=== PATIENT | female | born 1950 | race Two or more races ===

== ENCOUNTER 2017-06-20 11:14 | Inpatient (IN) | payer MEDICARE ==
[~2017-06-20] VITALS: Ht 180.3 cm; Wt 64.4 kg
--- NOTE | 2017-06-20 13:30 | NUR ---
PT. ADM. TO RM 309-2.ALERT AND ORIENTED,BUT SOME DIFFICULTY ANSWERING QUESTIONS FROM TIME TO TIME.HOOKED UP TO TELE SR RATE OF 66.PLEASANT. INSTRUCTED NOT TO GET OOB WITHOUT HELP.
[2017-06-20] MEDS ORDERED: ACETAMINOPHEN 325 MG TABLET PO PRN (14:30)
[2017-06-20] MEDS ORDERED: Z GUARD REMEDY 2 OZ OINT TP PRN (14:30)
[2017-06-20] MEDS ORDERED: ZOLPIDEM TARTRATE 5 MG TABLET PO PRN (14:30)
[2017-06-20] MEDS ORDERED: LORA0.5T PO (14:35)
[2017-06-20] MEDS: IV NS 0.9% 1,000 ML IV PRN (15:56)
[2017-06-20 16:00] VITALS: BP 112/55
--- NOTE | 2017-06-20 17:00 | NUR ---
ADMIT PHOTOS TAKEN AND PLACED IN CHART.
[2017-06-20] MEDS: Folic acid 1 MG in IV D5W 50 ML IV SCH (17:07)
[2017-06-20] MEDS: Thiamine 100 MG in IV D5W 50 ML IV SCH (18:08)
--- NOTE | 2017-06-20 18:50 | NUR ---
MEGAN WITH ID AND CREDIT CARDS WELL PENALOZA TO SAFE,CIGARETTES TO DESK AND ATIVAN BOTTLE TO PHARM.
--- NOTE | 2017-06-20 19:00 | NUR ---
MS RN OPENING NOTES RECEIVE PT RESTING IN BED, A/OX 1. NO S/S OF RESPIRATORY DISTRESS OR SOB. SAFETY MEASURES IN PLACE, ON LOW BED TO ENSURE SAFETY. CALL LIGHT WITHIN REACH. WILL CONTINUE TO MONITOR
[2017-06-20 20:00] VITALS: BP 127/59
[2017-06-20 20:14] VITALS: BP 127/59
[2017-06-20] MEDS: HYDROCODONE/APAP 5/325MG 1 EACH TABLET PO PRN (21:15)
[2017-06-21] MEDS: LORAZEPAM INJ 2 MG/ML VIAL IV PRN ×4 (03:11→22:32)
[2017-06-21] MEDS: HYDROCODONE/APAP 5/325MG 1 EACH TABLET PO PRN (03:16)
[2017-06-21] MEDS: IV NS 0.9% 1,000 ML IV PRN (03:17)
--- NOTE | 2017-06-21 06:20 | NUR ---
MS RN CLOSING NOTES PATIENT COMFORTABLY ASLEEP AND EASILY AWAKEN, HEAD OF BED ELEVATED FOR BETTER LUNG EXPANSION TOLERATING ROOM AIR 02 SAT AT 100% IV SITE TO L HAND 20 NS RUNNING AT 75 CC/HR INFUSING IV SITE NO S/S OF INFILTRATED, PATIENT DENIES PAIN AT THIS TIME. RESPIRATIONS EVEN AND UNLABORED. NO SEIZURE NOTED THROUGHOUT THE SHIFT. NO S/S OF ACUTE DISTRESS, NO SOB, NO COUGH, NO CONGESTION, SKIN WARM AND DRY TO TOUCH, AFEBRILE, ALL NURSING CARE NEEDS PROVIDED AND RENDERED, KEPT CLEAN AND DRY AND COMFORTABLE, GOOD SKIN ARE PROVIDED. FREQUENT VISUAL CHECK DONE FOR SAFETY EVERY 2 HOURS. SAFE HAZARD FREE ENVIRONMENT PROVIDED. CALL LIGHT WITHIN EASY TO REACH, ON LOW BED AT ALL TIMES TO ENSURE SAFETY, WILL ENDORSE TO THE NEXT SHIFT CONTINUE PLAN OF CARE
[2017-06-21 07:25] LABS: BASOPHILS % (AUTO) 0.2 % (0.0-2.0); EOSINOPHILS # (AUTO) 0.3 /CMM (0.0-0.7); EOSINOPHILS % (AUTO) 6.9 % (0.0-6.0); HEMATOCRIT 34 % (33-45); HEMOGLOBIN 11.7 g/dL (11.5-14.8); LYMPHOCYTES # (AUTO) 1.7 /CMM (0.8-4.8); LYMPHOCYTES % (AUTO) 35.8 % (20.0-44.0); MEAN CORPUSCULAR HEMOGLOBIN 36 PG (26.0-33.0); MEAN CORPUSCULAR HGB CONC 34 g/dl (31.0-36.0); MEAN CORPUSCULAR VOLUME 106 fL (82-100); MONOCYTES # (AUTO) 0.2 /CMM (0.1-1.30); NEUTROPHILS # (AUTO) 2.4 /CMM (1.8-8.9); NEUTROPHILS % (AUTO) 52.1 % (43.0-81.0); PLATELET COUNT (AUTO) 75 /CMM (150-450); RDW COEFFICIENT OF VARIATION 14.4 (11.5-15.0); RED BLOOD CELL COUNT(AUTO) 3.25 MIL/uL (4.0-5.2); WHITE BLOOD COUNT (AUTO) 4.7 K/uL (4.3-11.0)
[2017-06-21 07:28] LABS: INR 1.24 (0.87-1.13); PROTHROMBIN TIME 13.4 SECS (9.5-12.7)
[2017-06-21 07:33] LABS: ALBUMIN 2.4 g/dL (3.4-5.0); BILIRUBIN,TOTAL 2.2 mg/dL (0.2-1.0); CALCIUM, SERUM 8.2 mg/dL (8.5-10.1); CREATININE 0.6 mg/dL (0.6-1.3); MAGNESIUM 1.4 mg/dL (1.8-2.4); PHOSPHORUS 3.4 mg/dL (2.5-4.9); POTASSIUM 3.4 mmol/L (3.5-5.1); TOTAL PROTEIN, SERUM 6.2 g/dL (6.4-8.2)
[2017-06-21 08:00] VITALS: BP 123/75
[2017-06-21] MEDS: ONDANSETRON HCL/PF 4 MG/2 ML VIAL IVP PRN ×2 (08:52→22:33)
--- NOTE | 2017-06-21 08:52 | NUR ---
PT.MEDICATED FOR AGITATION AND A LITTLE TREMERING HANDS WITH ATIVAN IV.
[2017-06-21 09:36] LABS: BAND % (MANUAL) 2 % (0.0-5.0); EOSINOPHILS % (MANUAL) 4 % (0-4); LYMPHOCYTES % (MANUAL) 33 % (16-48); MONOCYTES % (MANUAL) 9 % (0-11.0); NEUTROPHILS % (MANUAL) 52 (42-76)
--- NOTE | 2017-06-21 10:00 | NUR ---
TELE DC,D PER MD ORDERS.DR. WOOTEN IN TO SEE PT.
[2017-06-21] MEDS: Magnesium 1GM/D5W 100ML PREMIX 100 ML IV SCH ×4 (10:23→16:12)
--- NOTE | 2017-06-21 11:25 | NUR ---
Social service consult requested by Med Surg MCKENNA Childress for alcohol program resources. Pt. is a 66 year old female who was admitted to [facility] for Alcohol Abuse. SW met with pt. bedside. Pt. is alert and oriented x 4. Pt. was cooperative and friendly towards SW during the assessment. Pt. states she lives alone on [address], [address] [place] [address]. Pt. is and has some supports from friends and family. Pt. has a half-brother who resides in [place]. Pt. receives approximately $1400 a month in [employer] benefits and $380.00 from a small pension. Pt. is ambulatory but has a walker at home, which she uses when she has a lot of anxiety. Pt. is an alcoholic and states she drinks approximately 6 to 8 glasses of wine per day. Pt. states she has not been to any alcohol treatment programs and has attended over 100 AA meetings. Pt. is not interested in any alcohol treatment referrals and AA referrals. When ARLETH offered referrals to pt. she stated, " I have a stack of referrals in my closet and AA meetings do not work for me". Pt. denies using drugs but smokes 5 to 6 cigarettes per day. At times pt. smokes more than 6 cigarettes per day, when she is feeling anxious or nervous. Pt. denies suicidal and homicidal ideations and visual/ auditory hallucinations at this time. No social service needs are required at this time. SW is available if needed. ARLETH informed MCKENNA Childress regarding pt. refusing referrals for Alcohol treatment programs.
[2017-06-21] MEDS ORDERED: POTASSIUM CHLORIDE 20 MEQ TAB.PRT.SR PO SCH (11:30)
--- NOTE | 2017-06-21 11:30 | NUR ---
IV LT. HAND LEAKING AND REMOVED.NEW START IN LT WRIST WITH #22 ANGIO.TOLERATED WELL.
--- NOTE | 2017-06-21 11:48 | NUR ---
WOUND CARE CONSULT: PT PRESENTS CONTINENT AND AMBULATORY. SKIN TEAR NOTED TO RT ARM. RECOMMENDATIONS MADE AND DISCUSSED WITH NURSING STAFF FOR SKIN PROTECTION AND WOUND CARE. WILL SEE PRN. SLOAN IN AGREEMENT WITH PLAN OF CARE. Addendum: 06/21/17 at 1152 by SONJA BAEZA WNDNU Amended: Links added.
--- NOTE | 2017-06-21 14:48 | NUR ---
PT. MEDICATED AGAIN WITH ATIVAN IV.UP AND DOWN OUT OF BED VERY FREQ.IV INFUSING.
--- NOTE | 2017-06-21 16:00 | NUR ---
POTASSIUM AND MG. REPLACEMENT.
[2017-06-21 16:31] VITALS: BP 128/65
[2017-06-21] MEDS: Folic acid 1 MG in IV D5W 50 ML IV SCH (17:41)
--- NOTE | 2017-06-21 18:00 | NUR ---
RN IN TO RM. SUH.PT. GETTING OOB WITHOUT HELP,CONFUSED AT TIMES,LOOKING FOR BELONGINGS ASSURED THEY ARE LOCKED UP.
[2017-06-21] MEDS: Thiamine 100 MG in IV D5W 50 ML IV SCH (18:38)
[2017-06-21 20:00] VITALS: BP 126/73
[2017-06-21 22:00] VITALS: BP 126/73
[2017-06-22] MEDS: LORAZEPAM INJ 2 MG/ML VIAL IV PRN ×4 (01:08→21:17)
[2017-06-22 06:52] LABS: CALCIUM, SERUM 8.3 mg/dL (8.5-10.1); CREATININE 0.7 mg/dL (0.6-1.3); MAGNESIUM 1.5 mg/dL (1.8-2.4); POTASSIUM 3.7 mmol/L (3.5-5.1)
--- NOTE | 2017-06-22 07:30 | NUR ---
END OF SHIFT SUMMERY: PT IS A&O X 1. CONFUSED WITH MULTIPLE EPISODES OF AGITATION. REORIENTATION AND EDUCATION PROVIDED TO THE PATIENT MULTIPLE TIMES. PT STILL CONFUSED AND AGITATED . ATIVAN WAS GIVEN TWICE PRESCRIBED WITH LIGHT RELIEF. FALL RISK AND SAFETY MEASURES WERE IMPLEMENTED . PT NEEDS SITTER. CHARGE NURSE IS AWARE. WILL ENDORSE IT TO AM SHIFT NURSE TO FOLLOW UP.
--- NOTE | 2017-06-22 08:00 | NUR ---
MS RN AM NOTES RECEIVE PT RESTING IN BED, A/OX 1. PT SLEEPING COMFORTABLY BUT AROUSABLE WITH NO AGITATION NOTED. NO S/S OF RESPIRATORY DISTRESS OR SOB.WITH 1:1 SITTER AT BEDSIDE. SAFETY MEASURES IN PLACE, ON LOW BED TO ENSURE SAFETY. CALL LIGHT WITHIN REACH. WILL CONTINUE TO MONITOR
[2017-06-22] MEDS: THIAMINE HCL 100 MG TABLET PO SCH (11:10)
[2017-06-22] MEDS: FOLIC ACID 1 MG TABLET PO SCH (11:10)
[2017-06-22] MEDS: Magnesium 1GM/D5W 100ML PREMIX 100 ML IV SCH ×2 (11:10→12:34)
--- NOTE | 2017-06-22 13:00 | NUR ---
PT REFUSED IV NS TO BE HOOKED AND IS GETTING ANXIOUS WITH THE IV TUBING.WILL HOOK IT BACK LATER.
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
--- NOTE | 2017-06-22 20:00 | NUR ---
MS/RN OPENING NOTES PATIENT AWAKE, NOT COOPERATIVE AND REFUSE TO HAVE VITAL SIGN CHECK, REQUIRE ONE ON ONE SITTER AND NEED CONTINOUS MONITORING WILL BE TRANSFERED TO ANOTHER ROOM.
[2017-06-23] MEDS: LORAZEPAM INJ 2 MG/ML VIAL IV PRN ×3 (03:36→13:22)
[2017-06-23] MEDS: IV NS 0.9% 1,000 ML IV PRN (03:36)
--- NOTE | 2017-06-23 03:39 | NUR ---
MS/RN NOTES ATIVAN 1MG/0.5ML GIVEN FOR PATIENT RESTLESNESS
--- NOTE | 2017-06-23 06:17 | NUR ---
ms/rn closing notes patient able to sleep during the night. no s/s of distress or discomfort. administered ativan iv inj.continue monitoing for pain. require one on one. sitter . will continue . Will endorse to am rn.
[2017-06-23 06:52] LABS: CALCIUM, SERUM 8.4 mg/dL (8.5-10.1); CREATININE 0.6 mg/dL (0.6-1.3); MAGNESIUM 1.4 mg/dL (1.8-2.4); POTASSIUM 3.4 mmol/L (3.5-5.1)
[2017-06-23 08:00] VITALS: BP 131/61
[2017-06-23] MEDS: FOLIC ACID 1 MG TABLET PO SCH (08:59)
[2017-06-23] MEDS: THIAMINE HCL 100 MG TABLET PO SCH (09:00)
[2017-06-23] MEDS: Magnesium 1GM/D5W 100ML PREMIX 100 ML IV SCH ×4 (11:32→15:09)
[2017-06-23 12:00] VITALS: BP 136/68
[2017-06-23] MEDS ORDERED: POTASSIUM CHLORIDE 20 MEQ TAB.PRT.SR PO SCH (12:00)
--- NOTE | 2017-06-23 12:30 | NUR ---
SW was inquired by cyanide case hardener Warren to contact missing persons since pt. has been hospitalized for a few days and no family has come to see the pt. [facility] contacted Missing Persons and spoke to Detective Christensen who looked into their database and could not find a missing persons report filed on pt.
[2017-06-23] MEDS: HYDROCODONE/APAP 5/325MG 1 EACH TABLET PO PRN (13:18)
[2017-06-23 16:00] VITALS: BP 143/64
--- NOTE | 2017-06-23 18:00 | NUR ---
PT IS RESTING CALMLY IN BED WITH THE SITTER AT BEDSIDE.DENIES PAIN OR DISTRESS.SMILES OFTEN AND CONFUSION REMAINS.WAS SEEN BY CRISIS TEAM WITH ORDERS FOR 51/50 AND TO BE DISCHARGED TO GPS UNIT.ENDORSED TO NIGHT RN SHIFT.
--- NOTE | 2017-06-23 19:30 | NUR ---
MS RN NOTES RECEIVED RESTING COMFORTABLY ON BED.WITH IVF INFUSING AT 75ML/HR RATE VIA RIGHT UPPER MIDLINE THRU IV PUMP.WITH SALINE LOCK ON THE RFA AND LEFT AC,BOTH NOT WORKING,APPARENTLY WAS REMOVED.PATIENT WILL BE D.C TO [facility] AND WAS PLACE ON 5150 HOLD BY CRISIS TEAM.AWAITING TO BE TRANSFER.SITTER AT BEDSIDE.
--- NOTE | 2017-06-23 20:00 | NUR ---
MS RN NOTES REPORT GIVEN TO HENRIK AYALA RN FOR DAWSON.
[2017-06-23 20:11] VITALS: BP 116/63
--- NOTE | 2017-06-23 20:50 | NUR ---
MS RN NOTES TRANSFERRED TO GPS VIA WHEELCHAIR IN STABLE CONDITION.
[2017-06-23] MEDS ORDERED: CHLO25CA22 PO (22:21)
[2017-06-23] MEDS ORDERED: ACET-73 PO (22:21)
[2017-06-23] MEDS ORDERED: THIA100T74 PO (22:21)
[2017-06-23] MEDS ORDERED: FOLI1TAB16 PO (22:21)
== END 2017-06-23 20:51 | DRG 896 ==
LOC: EDSEX → MED 13:05
PROVIDERS: ADMIT Internal Medicine; ATTEND Internal Medicine
PROC: 05H533Z Insertion of Infusion Device into Right Subclavian Vein, Percutaneous Approach (ICD-10-PCS; principal; 2017-06-22)
DX: F10.231 Alcohol dependence with withdrawal delirium (principal); G92 Toxic encephalopathy; E83.42 Hypomagnesemia; F10.229 Alcohol dependence with intoxication, unspecified; Y90.9 Presence of alcohol in blood, level not specified
CPT/HCPCS: 36415; 36569; 80048-TC; 80053-TC; 80061-TC; 83735-TC; 84100-TC; 84484-TC; 85025-TC; 85610-TC; 87081-TC; A6403; J2060; J2405; J3411; J3475; J3490; J7030; J7060; Z7610

== ENCOUNTER 2017-06-23 21:12 | Inpatient (IN) | payer MEDICARE ==
[2017-06-23 21:00] VITALS: BP 136/71
[~2017-06-23 21:12] MED LIST: LORA0.5T PO
[2017-06-23] MEDS ORDERED: THIA100T74 PO (22:21)
[2017-06-23] MEDS ORDERED: FOLI1TAB16 PO (22:21)
[2017-06-23] MEDS ORDERED: ACET-73 PO (22:21)
[2017-06-23] MEDS ORDERED: CHLO25CA22 PO (22:21)
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
--- NOTE | 2017-06-24 06:17 | NUR ---
GPS/RN NOTE: PAGED DR. Angie REYNOSO FOR MED RECON.
--- NOTE | 2017-06-24 06:18 | NUR ---
GPS/RN NOTE: MRSA SCREEN DONE
--- NOTE | 2017-06-24 06:18 | NUR ---
GPS/RN OTE: SKIN ASSESSMENT/PHOTO DONE
[2017-06-24 07:18] LABS: BASOPHILS % (AUTO) 0.1 % (0.0-2.0); EOSINOPHILS # (AUTO) 0.3 /CMM (0.0-0.7); EOSINOPHILS % (AUTO) 4.5 % (0.0-6.0); HEMATOCRIT 38 % (33-45); HEMOGLOBIN 12.5 g/dL (11.5-14.8); LYMPHOCYTES # (AUTO) 2.2 /CMM (0.8-4.8); MEAN CORPUSCULAR HEMOGLOBIN 36 PG (26.0-33.0); MEAN CORPUSCULAR HGB CONC 33 g/dl (31.0-36.0); MEAN CORPUSCULAR VOLUME 107 fL (82-100); MONOCYTES # (AUTO) 0.4 /CMM (0.1-1.30); MONOCYTES % (AUTO) 6.9 % (2.0-12.0); NEUTROPHILS # (AUTO) 2.9 /CMM (1.8-8.9); NEUTROPHILS % (AUTO) 49.5 % (43.0-81.0); PLATELET COUNT (AUTO) 80 /CMM (150-450); RDW COEFFICIENT OF VARIATION 15.3 (11.5-15.0); RED BLOOD CELL COUNT(AUTO) 3.52 MIL/uL (4.0-5.2); WHITE BLOOD COUNT (AUTO) 5.8 K/uL (4.3-11.0)
[2017-06-24 07:39] LABS: ALBUMIN 2.6 g/dL (3.4-5.0); BILIRUBIN,TOTAL 1.4 mg/dL (0.2-1.0); CALCIUM, SERUM 8.7 mg/dL (8.5-10.1); CREATININE 0.6 mg/dL (0.6-1.3); POTASSIUM 3.6 mmol/L (3.5-5.1); TOTAL PROTEIN, SERUM 6.9 g/dL (6.4-8.2)
[2017-06-24 08:00] VITALS: BP 132/69
[2017-06-24 10:00] LABS: BAND % (MANUAL) 2 % (0.0-5.0); EOSINOPHILS % (MANUAL) 7 % (0-4); LYMPHOCYTES % (MANUAL) 41 % (16-48); MONOCYTES % (MANUAL) 8 % (0-11.0); NEUTROPHILS % (MANUAL) 42 (42-76)
[2017-06-24 16:11] VITALS: BP 110/68
[2017-06-24 20:00] VITALS: BP 115/69
--- NOTE | 2017-06-24 20:16 | NUR ---
GPS/RN NOTE: PATIENT RESTING IN BED, SKIN ASSESSMENT DONE, PHOTO TAKEN, SKIN CONSULT ORDERED.
--- NOTE | 2017-06-24 20:17 | NUR ---
GPS/RN NOTE: PATIENT TOOK SHOWER.
[2017-06-25 08:00] VITALS: BP 126/67
[2017-06-25 16:00] VITALS: BP 125/61
--- NOTE | 2017-06-25 19:30 | NUR ---
GPS RN INITIAL NOTE PT IN BED. AWAKE, ALERT AND ORIENTED X3. PT WITH FLAT AFFECT, COOPERATIVE. SAYS SHE NEEDS TO GO HOME. INSTRUCTED PATIENT TO USE WALKER AND CALL FOR HELP WHEN SHE NEEDS TO USE THE BATHROOM. DIAPER INTACT. BED IN LOW LOCKED POSITION. WILL CONTINUE TO MONITOR.
[2017-06-25 19:40] VITALS: BP 110/61
[2017-06-26 08:00] VITALS: BP 101/54
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
[2017-06-26 16:00] VITALS: BP 119/53
[2017-06-26 20:04] VITALS: BP 99/49
[2017-06-27 08:00] VITALS: BP 124/58
--- NOTE | 2017-06-27 11:00 | NUR ---
WOUND CARE CONSULT: PT PRESENTS WITH RASH TO BUTTOCKS AND PERINEUM WELL BUMPY RASH TO FACE (CHEEKS). DEFER TO MD FOR FACIAL RASH. RECOMMENDATIONS MADE FOR BUTTOCK/PERINEAL RASH. DISCUSSED WITH NURSING STAFF. SKIN TEAR TO RT ARM REPAIRED WITH STERI STRIPS. PT NOTED TO HAVE VERY DRY SKIN ON ARMS. RECOMMEND MOISTURIZER. WILL SEE PRN. MD IN AGREEMENT WITH PLAN OF CARE. CURRENT QING SCORE IS 18. Addendum: 06/27/17 at 1102 by SONJA BAEZA WNDNU Amended: Links added.
--- NOTE | 2017-06-27 15:22 | NUR ---
abrasive worker spoke to patient regarding or brothers contact numbers. Patient appeared confused and was unable to provide any information. Charge nurse Caty searched patient's belongings for a cell phone however, no cell phone was found. abrasive worker will follow-up.
[2017-06-27 16:04] VITALS: BP 131/58
[2017-06-27 19:51] VITALS: BP 131/71
[2017-06-28] VITALS (8 sets, daily range): BP systolic 134–185; BP diastolic 65–119
--- NOTE | 2017-06-28 06:16 | NUR ---
GPS RN NOTES: PATIENT WAS FOUND IN THE ROOM VOMITING, DESCRIBED TO BE MIXTURE OF FOOD AND SALIVA, GREENISH IN COLOR. . PATIENT ALSO NOTED TO BE UNRESPONSIVE AND NON-AROUSABLE UPON STERNAL RUB STIMULATION. VITAL SIGNS CHECKED TEMP-94F, HR-66 BP134/66 O2 SAT- 99%. RAPID RESPONSE CALLED FOR PATIENT. PATIENT THEN CLEANED UP AND HOOKED UP TO VITAL SIGNS MACHINE FOR MONITORING. 0630- DR. JORDAN INFORMED OF THE SAID INCIDENT. NO FURTHER ORDERS THIS TIME.
--- NOTE | 2017-06-28 07:10 | NUR ---
The patient is alert,oriented x1,no s/s of acute distress noted upon reassessment at this time.
--- NOTE | 2017-06-28 07:20 | NUR ---
RECEIVED PATIENT SLEEPING ,RESPIRATION EVEN AND UNLABORED NO FACIAL GRIMACING ,SKIN WARM ND DRY TO TOUCH,BP 155/99 PULSE 99 . PATIENT VOMITED AT 0755 ,OPEN HER EYES AND LETHARGIC AT 0800 VOMITED AGAIN ,NONVERBAL ,RAPID RESPONSE CALLED AT [address] JORDAN NOTIFIED BY CHARGE NURSE ,PATIENT SEEN BY RAPID RESPONSE TEAM ,CODE STROKE CALLED ,BP 166/118,HR 99 ,RR 16 ,SAO2 96%.PATIENT TRANSFERRED TO TELEMETRY UNIT ,HOLD DISCONTINUE BY .
--- NOTE | 2017-06-28 08:23 | NUR ---
CARPENTER HELPER MAINTENANCE RN RESPONDED TO CORE STICKER. PATIENT IS ON RECLINER CHAIR. PATIENT NOTED TO ONLY RESPOND TO DEEP PAINFUL STIMULI AND RIGHT SIDED FACIAL DROOPING NOTED. DROOLING NOTED. CODE STROKE ACTIVATED PER ASSESSMENT.
--- NOTE | 2017-06-28 08:32 | NUR ---
COMPUTER SCIENCE TEACHER TELE NEUROLOGIST CALLED THE HOSPITAL. RN GAVE REPORT TO THE TELE NEUROLOGIST. DR. SMA ASSESSED AND EXAMINED THE PATIENT AT BEDSIDE.
--- NOTE | 2017-06-28 09:10 | NUR ---
Received patient this am post rapid response for altered mental status. Patient very lethargic, opens eyes and moans to only to pain. Reported patient baseline was ambulatory and coherent. Code stroke called, CT head done- negative. Dr. Quinones at bedside, order stat MRI. No Family member available to consent for MRI.
[2017-06-28 09:13] LABS: BASOPHILS % (AUTO) 0.1 % (0.0-2.0); EOSINOPHILS % (AUTO) 0.2 % (0.0-6.0); HEMATOCRIT 44 % (33-45); HEMOGLOBIN 14.8 g/dL (11.5-14.8); LYMPHOCYTES # (AUTO) 1.3 /CMM (0.8-4.8); LYMPHOCYTES % (AUTO) 30.2 % (20.0-44.0); MEAN CORPUSCULAR HEMOGLOBIN 35 PG (26.0-33.0); MEAN CORPUSCULAR HGB CONC 33 g/dl (31.0-36.0); MEAN CORPUSCULAR VOLUME 106 fL (82-100); MONOCYTES # (AUTO) 0.3 /CMM (0.1-1.30); MONOCYTES % (AUTO) 7.9 % (2.0-12.0); NEUTROPHILS # (AUTO) 2.7 /CMM (1.8-8.9); NEUTROPHILS % (AUTO) 61.6 % (43.0-81.0); PLATELET COUNT (AUTO) 90 /CMM (150-450); RDW COEFFICIENT OF VARIATION 14.9 (11.5-15.0); WHITE BLOOD COUNT (AUTO) 4.4 K/uL (4.3-11.0)
[2017-06-28 09:14] LABS: CHOLESTEROL 190 mg/dL (<200); HDL CHOLESTEROL 67 mg/dL (40-60); LDL 112 mg/dL (0-99); TRIGLYCERIDES 78 mg/dL (30-150)
--- NOTE | 2017-06-28 09:18 | NUR ---
Dr. Boss/neurology at bedside for eval. Patient still lethargic but opens her eyes and slowly responding. She is able to state her name, and aware she is in the hospital. Normotensive now, 153/85 P87 O2 sat 98% on 2L NC. Patient continue coughing, vomited green secretions with little bit of blood earlier, Dr. gallagher aware. Aspiration precautions, HOB 90
--- NOTE | 2017-06-28 09:30 | NUR ---
Patient discharge from this account. Patient re admitted under an inpatient account
[2017-06-28 09:32] LABS: INR 1.2 (0.87-1.13); PROTHROMBIN TIME 12.5 SECS (9.5-12.7)
[2017-06-28 09:50] LABS: BAND % (MANUAL) 2 % (0.0-5.0); EOSINOPHILS % (MANUAL) 2 % (0-4); LYMPHOCYTES % (MANUAL) 31 % (16-48); MONOCYTES % (MANUAL) 1 % (0-11.0); NEUTROPHILS % (MANUAL) 64 (42-76)
[2017-06-28 09:55] LABS: ALANINE AMINOTRANSFERASE 19 U/L (12-78); ALKALINE PHOSPHATASE 90 U/L (46-116); ASPARTATE AMINOTRANSFERASE 30 U/L (15-37); BILIRUBIN,TOTAL 1.3 mg/dL (0.2-1.0); CARBON DIOXIDE 21 mmol/L (21-32); CHLORIDE 107 mmol/L (98-107); POTASSIUM 4.1 mmol/L (3.5-5.1); SODIUM SERUM 142 mmol/L (136-145); TOTAL PROTEIN, SERUM 8.1 g/dL (6.4-8.2); UREA NITROGEN, BLOOD 18 mg/dL (7-18)
[2017-06-28 10:08] LABS: ALBUMIN 3.1 g/dL (3.4-5.0); CALCIUM, SERUM 9.3 mg/dL (8.5-10.1); CREATININE 0.7 mg/dL (0.6-1.3); MAGNESIUM 1.6 mg/dL (1.8-2.4)
[2017-06-28 10:31] LABS: B-TYPE NATRIURETIC PEPTIDE < 5 PG/ML (0-125); GLUCOSE 167 mg/dL (74-106)
[2017-06-28 13:49] LABS: THYROID STIMULATING HORMONE 1.173 uIU/mL (0.358-3.74)
== END 2017-06-28 08:45 | disposition short-term general hospital (02) | DRG 885 ==
LOC: EDSEX → GPS 21:12 → ICUOV 06-28 08:45
PROVIDERS: ADMIT Psychiatry & Neurology Psychiatry; ATTEND Internal Medicine
DX: F33.2 Major depressive disorder, recurrent severe without psychotic features (principal); F10.229 Alcohol dependence with intoxication, unspecified; G92 Toxic encephalopathy; F03.90 Unspecified dementia, unspecified severity, without behavioral disturbance, psychotic disturbance, mood disturbance, and anxiety; E83.42 Hypomagnesemia; F10.239 Alcohol dependence with withdrawal, unspecified; F23 Brief psychotic disorder; I10 Essential (primary) hypertension; F43.10 Post-traumatic stress disorder, unspecified; Y90.9 Presence of alcohol in blood, level not specified
CPT/HCPCS: 36415; 70450-TC; 70551-TC; 80048-TC; 80053-TC; 80061-TC; 82962-TC; 83735-TC; 83880; 84443-TC; 84484-TC; 85025-TC; 85652-TC; 85730-TC; 95819-TC; A4606; A6402

== ENCOUNTER 2017-06-28 10:41 | Inpatient (IN) | payer MEDICARE ==
[2017-06-28] VITALS (16 sets, daily range): BP systolic 141–175; BP diastolic 62–85
[~2017-06-28] VITALS: Ht 180.3 cm; Wt 64.0 kg
--- NOTE | 2017-06-28 09:30 | NUR ---
Re admitted patient from GPS to rule out stroke. Patient very lethargic, drooling, vomiting this AM with concern voice out by GPS RN that mild facial droop on the right side. Code stroke called, CT head done negative. Patient transferred to ICU to rule out stroke, NIH assessment. No family available.
[~2017-06-28 10:41] MED LIST changes: +CHLO25CA22 PO; +FOLI1TAB16 PO; -LORA0.5T PO; +THIA100T74 PO
[2017-06-28 12:36] LABS: APPEARANCE,URINE CLEAR (CLEAR); BILIRUBIN,URINE NEGATIVE (NEGATIVE); BLOOD, URINE NEGATIVE Ery/uL (NEGATIVE); KETONES,URINE TRACE (NEGATIVE); LEUKOCYTE ESTERASE ,URINE 1+ (NEGATIVE); NITRITE, URINE NEGATIVE (NEGATIVE); PROTEIN,URINE NEGATIVE (NEGATIVE); UGLUCOSE NEGATIVE (NEGATIVE); UROBILINOGEN,URINE 0.2 EU/dL (0.2)
[2017-06-28 12:38] LABS: COLOR,URINE DARK YELLOW (YELLOW)
--- NOTE | 2017-06-28 12:48 | NUR ---
WOUND CARE CONSULT: PT PRESENTS WITH RASH TO SACRAL/BUTTOCKS AREA AND PERINEUM WELL FACIAL RASH, PRESENT ON ADMISSION. DEFER TO MD FOR FACIAL RASH/REDNESS. CLOSED SKIN TEARS NOTED TO RT ARM AND RT LEG. RECOMMENDATIONS MADE FOR SKIN PROTECTION AND RASH ON BUTTOCKS/PERINEUM. DISCUSSED WITH NURSING STAFF. RECOMMEND LOW AIRLOSS BED. ALL SKIN PROTECTION MEASURES IN PLACE. WILL SEE PRN. MD IN AGREEMENT WITH PLAN OF CARE. Addendum: 06/28/17 at 1250 by SONJA BAEZA WNDNU Amended: Links added.
[2017-06-28 13:23] LABS: BACTERIA,URINE Few /HPF (None Seen); RBC,URINE 0-2 /HPF (0-2)
--- NOTE | 2017-06-28 19:30 | NUR ---
DRIER TENDER: RECEIVED PT WT EYES CLOSED. ABLE TO OPEN EYES WHEN TOUCHED AND CALLED BY NAME. NOTED LETHARGIC. ON 2L 02 VIA NC WT NO ACUTE DISTRESS. NO EVIDENCE OF DISCOMFORT. SR ON DIRECTOR OF BUSINESS CONTINUITY. AFEBRILE. TOLERATING IVF WT NO S/S OF INFILTRATION ON IV SITE. F/C PATENT AND INTACT DRAINING YELLOW URINE. WILL CONTINUE TO MONITOR. SAFETY PRECAUTION NOTED.
[2017-06-29] VITALS (31 sets, daily range): BP systolic 85–158; BP diastolic 47–107
--- NOTE | 2017-06-29 00:35 | NUR ---
DOUBLE END TENON OPERATOR: MATEUSZ MANUEL MADE AWARE OF 06/28 MG=[address] WOOTEN'S NOTES OF DX OF HYPOMAGNESEMIA AND THAT THERE'S A REPEAT LABS TODAY. VENEER JOINTER OPERATOR SAID NO NEED TO REPLACE MG FOR NOW.
--- NOTE | 2017-06-29 02:45 | NUR ---
ART MANAGER: ALL LAB ORDERS ORDERED BY DR. WOOTEN WERE FROM GPS ACCOUNT AND WAS ASKED BY LAB PERSONNEL TO TRANSFER TO ICU ACCT.
--- NOTE | 2017-06-29 04:00 | NUR ---
CYLINDER HEAD ASSEMBLER: BED BATH GIVEN AND TOLERATED WELL. NO DAWSON AT THIS TIME. ABLE TO KNOW NAME AND DATE OF WHEN ASKED. SR ON PRODUCTION SUPPORT CONSULTANT. LH IV INFUSING 1/2 NS AT 100ML/HR WT NO S/S OF INFILTRATION. F/C PATENT AND INTACT DRAINING YELLOW URINE. SAFETY PRECAUTION NOTED AT ALL TIMES.
[2017-06-29 04:53] LABS: BASOPHILS % (AUTO) 0.2 % (0.0-2.0); EOSINOPHILS % (AUTO) 0.5 % (0.0-6.0); HEMATOCRIT 42 % (33-45); HEMOGLOBIN 14.1 g/dL (11.5-14.8); LYMPHOCYTES # (AUTO) 1.5 /CMM (0.8-4.8); LYMPHOCYTES % (AUTO) 20.5 % (20.0-44.0); MEAN CORPUSCULAR HEMOGLOBIN 35 PG (26.0-33.0); MEAN CORPUSCULAR HGB CONC 33 g/dl (31.0-36.0); MEAN CORPUSCULAR VOLUME 106 fL (82-100); MONOCYTES # (AUTO) 0.7 /CMM (0.1-1.30); MONOCYTES % (AUTO) 8.9 % (2.0-12.0); NEUTROPHILS # (AUTO) 5.2 /CMM (1.8-8.9); NEUTROPHILS % (AUTO) 69.9 % (43.0-81.0); PLATELET COUNT (AUTO) 119 /CMM (150-450); RDW COEFFICIENT OF VARIATION 14.5 (11.5-15.0); WHITE BLOOD COUNT (AUTO) 7.4 K/uL (4.3-11.0)
[2017-06-29 04:55] LABS: CALCIUM, SERUM 8.8 mg/dL (8.5-10.1); CARBON DIOXIDE 28 mmol/L (21-32); CHLORIDE 106 mmol/L (98-107); CREATININE 0.7 mg/dL (0.6-1.3); GLUCOSE 98 mg/dL (74-106); MAGNESIUM 1.3 mg/dL (1.8-2.4); POTASSIUM 3.2 mmol/L (3.5-5.1); SODIUM SERUM 142 mmol/L (136-145); UREA NITROGEN, BLOOD 10 mg/dL (7-18)
[2017-06-29 05:03] LABS: TROPONIN I < 0.017 ng/mL (0.00-0.056)
[2017-06-29 05:09] LABS: CHOLESTEROL 189 mg/dL (<200); HDL CHOLESTEROL 63 mg/dL (40-60); INR 1.19 (0.87-1.13); LDL 120 mg/dL (0-99); PROTHROMBIN TIME 12.4 SECS (9.5-12.7); TRIGLYCERIDES 70 mg/dL (30-150)
--- NOTE | 2017-06-29 06:00 | NUR ---
SEA AIR LAND OFFICER: NOTIFIED KALEB CHILD FOR MG LEVEL=1.3 AND K=3.2 WT ORDERS TO GIVE MG 4M AND KCL 10MEQ IV. NOTED AND CARRIED OUT. NO SIGNIFICANT DAWSON DURING THE SHIFT. REMAINED LETHARGIC AND ABLETO FOLLOW SIMPLE COMMANDS. VS WITHIN HER BASELINE. SAFETY PRECAUTION NOTED AT ALL TIMES.
--- NOTE | 2017-06-29 08:00 | NUR ---
CREDIT HISTORIAN:NOTE RECEIVED PT WT EYES CLOSED.LETHARGIC ABLE TO OPEN EYES WHEN TOUCHED AND CALLED BY NAME. ON 2L 02 VIA NC SAT 99% NO ACUTE DISTRESS. NO EVIDENCE OF DISCOMFORT. SR ON ADJUNCT PHILOSOPHY FACULTY SB 50 . AFEBRILE. LT HAND IV SITE WITH SWOLLEN NOTED KEEP ELEVATED AT ALL TIME ,F/C PATENT AND INTACT DRAINING YELLOW URINE. WILL CONTINUE TO MONITOR. SAFETY PRECAUTION NOTED. ON NPO STATUS, ON IVF ORDERED AND ON MAG INFUSING, BED IN LOWEST AND LOCKED POSITION
--- NOTE | 2017-06-29 08:30 | NUR ---
RAND BUTTER NOTE SPOKE WITH DR WOOTEN NOTIFIED THAT 3.2 ,10 MEQ KCL IV GIVEN ,NO MORE TO ADMINISTER AT THIS TIME
--- NOTE | 2017-06-29 08:30 | NUR ---
PSYCHIATRIC TECHNICIAN ASSISTANT NOTE DR WOOTEN AWARE THAT LDL 163 HDL 63 OFFERED TO ORDER ASA AND STATIN STATED PATIENT STILL LETHARGIC WILL F\U. ALSO NOTIFIED THAT PATIENT HAS LT HAND WITH SWOLLEN ,KEEP ELEVATED
--- NOTE | 2017-06-29 08:51 | NUR ---
BUGGY DRIVER NOTE SPOKE WITH DR WOOTEN NOTIFIED THAT K 3.2 10 MEQ I BAG WAS GIVEN STATED ITS OK NO MORE AT THIS TIME TO DWIGHT GIVEN, ALSO NOTIFY THAT NA [address] RING CURING SUPERVISOR WILL SE HER SOON , ASKED DR KAREN SRIVASTAVA AND ASA STATED THAT PATIENT STILL LETHARGIC UNABLE TO TAKE PO MEDS AT THIS TIME Addendum: 06/29/17 at 0926 by KRISS GOULD RN WRONG CHARTING, WRONG PATIENT
--- NOTE | 2017-06-29 09:30 | NUR ---
SALES SUPPORT ADVISOR NOTE SEEN BY DR MONTES , WITH ORDER ABG , WILL F\U
[2017-06-29 10:18] LABS: ABG BASE EXCESS 1.2 mmol/L; ABG OXYGEN SATURATION 97.8 % (92.0-98.5); ABG PCO2 38.9 mmHg (35.0-45.0); ABG PH 7.433 (7.350-7.450); ABG PO2 122.9 mmHg (75.0-100.0); COHb 0.4 % (0.5-1.5); MetHb 0.3 % (0.0-1.5); O2Hb 97.1 % (94.0-97.0); SITE, ABG Right Radial; VENT MODE, BG NASAL CANNULA
--- NOTE | 2017-06-29 10:19 | NUR ---
DIRECTOR OF AGRONOMY NOTE PER DR JYOTI KHOURY DONE
--- NOTE | 2017-06-29 11:21 | NUR ---
ARCHITECTURE ANALYST NOTE MORE AWAKE ,AND FOLLOW SIMPLE COMMAND , PT AT BEDSIDE DONE ,ABLE TO STAND UP WITH MIN ASSISTANCE, WILL F\U
--- NOTE | 2017-06-29 12:44 | NUR ---
DRIVE MAN NOTE NOTIFIED TO DR WOOTEN IF OK TO PACE DVT PUMP ,STATED NOAT THIS TIME, LOVENOX ONLY AT WILL F\U Addendum: 06/29/17 at 1307 by KRISS GOULD RN WRONG CHARTING ON WRONG PATIENT DISREGARD ENTRY
--- NOTE | 2017-06-29 15:25 | NUR ---
LANDSCAPE HORTICULTURE INSTRUCTOR NOTE ST AT BEDSIDE ,WILL EVAL TOMORROW WHEN PATIENT GET MORE AWAKE , WILL F\U
--- NOTE | 2017-06-29 17:30 | NUR ---
GEOLOGIST PETROLEUM NOTE BP75/35 .ELEVATED LOWER EXTREMITIES , ON IVF ORDERED , PATINT AWKE AND ABLE TO SPEAK , WILL MONITOR CLOSELY
--- NOTE | 2017-06-29 18:40 | NUR ---
PATIENT SERVICE REP NOTE BP NOW 127/45 SAT 97% , NOT IN ACUTE DISTRESS AT THIS TIME , WILL CONT TO MONITOR ACCORDANTLY
--- NOTE | 2017-06-29 19:30 | NUR ---
ASSISTANT GUEST SERVICES MANAGER RCD PT W/DX AMS; POSSIBLE STROKE. INITIALLY PT APPEARS LETHARGIC HOWEVER UPON ASSESSMENT PT FULLY WAKES UP AND IS ABLE TO ANSWER IN COMPLETE SENTENCES. ABLE TO FOLLOW COMMANDS. NO WEAKNESS NOTED ON ALL EXTREMITIES. EDEMA NOTED TO LEFT HAND FROM PREVIOUS IV SITE; REINFORCE TO PT TO ELEVATE HAND. PT NOTED WITH RASHES W/ORDERS FROM LOTRISONE AND ZGUARD. PENDING MIDLINE INSERTION.
--- NOTE | 2017-06-29 20:12 | NUR ---
MOBILE HOME LABORER NON ADMIT STK MEDS FOR PT SAFETY.
[2017-06-30] VITALS (28 sets, daily range): BP systolic 97–155; BP diastolic 37–77
--- NOTE | 2017-06-30 00:42 | NUR ---
SDC TEACHER ACCU CHECK 80; NO COVERAGE NEEDED.
--- NOTE | 2017-06-30 02:00 | NUR ---
DIRECTOR OF EPIDEMIOLOGY COMPLETE BED BATH RENDERED. ORAL CARE RENDERED. PT TOLERATED WELL.
--- NOTE | 2017-06-30 06:07 | NUR ---
K 9 POLICE OFFICER ACCU CHECK 73; NO COVERAGE NEEDED.
--- NOTE | 2017-06-30 07:05 | NUR ---
DYE HOUSE WORKER NOTES RECEIVE PT ON BED, A/Ox1, FOLLOWS SIMPLE COMMANDS ,NO WEAKNESS NOTED ON ALL EXTREMITIES, RESPIRATION EVEN AND UNLABORED , ON 02 2 L N/C , O2 SAT 95%, ESA ANY DISTRESS AT THIS TIME , AGGARWAL DRAINING TO GRAVITY , NPO THIS AM . AWAITING FOR SWALLOWING EVAL THIS AM. R UPPER ARM MIDLINE WITH 1/2 NS RUNNING AT 100CC/HR , RIGHT FA IV SITE G 20 CDI, SR UP x3, CALL LIGHT WITHIN EASY REACH, CONTINUE TO MONITOR PT CLOSELY
--- NOTE | 2017-06-30 11:00 | NUR ---
RN NOTES PT STILL CONFUSED , A/Ox1 , SB ON TELE, NO DISTRESS NOTED, CONTINUE TO MONITOR.
--- NOTE | 2017-06-30 12:18 | NUR ---
RN NOTES AGGARWAL AND IVF AND O2 DISCONTINUED PER DR MAGDALENO ORDER, RA 02 SAT 98%. CONTINUE TO MONITOR . PT IS MED-SUG STATUS AT THIS TIME PER MD ORDER .
--- NOTE | 2017-06-30 12:40 | NUR ---
WOUND CARE CONSULT: PT PRESENTS WITH RASH TO SACRAL/BUTTOCKS AND PERINEAL AREAS, PRESENT ON ADMISSION. SOME IMPROVEMENT NOTED. CONTINUE PRESENT TREATMENT. DISCUSSED WITH NURSING STAFF. PT MORE ALERT NOW. PT ON RIKA ISOFLEX LOW AIRLOSS BED. WILL SEE PRN. SLOAN IN AGREEMENT WITH PLAN OF CARE. Addendum: 06/30/17 at 1241 by SONJA BAEZA WNDNU Amended: Links added.
--- NOTE | 2017-06-30 16:00 | NUR ---
RN NOTES VSS STABLE, PT DENIES ANY DISTRESS , CONTINUE TO MONITOR .
--- NOTE | 2017-06-30 18:55 | NUR ---
RN NOTES PT EAT ABOUT 40% OF HER DINNER , TOLERATED WELL. DR. MAGDALENO PAGED AND NOTIFIED , ORDER GIVEN TO DISCHARGE PT TO GPS . ORDER ENDORSE TO DIRECTOR OF FINANCIAL PLANNING NURSE FOR DAWSON .
--- NOTE | 2017-06-30 20:00 | NUR ---
RN NOTES IN BED, AWAKE WITH NO DISTRESS NOTED. ALERT AND RESPONSIVE WITH CONFUSION. WITH ORDERS TO BE TRANSFERRED TO GPS, HOLD FOR FURTHER ORDER. NO COMPLAINT OF PAIN OF THIS TIME. ALL NEEDS ATTENDED. KEPT CLEAN AND DRY. WILL CONTINUE TO MONITOR
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
[2017-07-01 04:00] VITALS: BP 129/80
--- NOTE | 2017-07-01 07:32 | NUR ---
RN CLOSING NOTES IN BED, SLEEPING WITH NO DISTRESS NOTED. NO SIGN OR SYMPTOM OF PAIN OR DISCOMFORT. FOR TRANSFER TO GPS. NO SIGNIFICANT CHANGE OF CONDITION, NEEDS ATTANDED. WILL ENDORSE AM SHIFT FOR CONTINUITY OF CARE.
--- NOTE | 2017-07-01 07:33 | NUR ---
MS RN NOTES RECEIVED PATIENT IN BED, AWAKE. A/O X2, APPEARS ANXIOUS. BED ALARM ON. ON ROOM AIR, TOLERATING WELL, NO SOB. GUNNER MIDLINE PATENT AND INTACT, FLUSHES WELL. NO C/O PAIN AT THIS TIME. PLACE CALL LIGHT WITHIN REACH. WILL CONT TO MONITOR. PATIENT TO BE DISCHARGED TO GPS ORDERED.
[2017-07-01 08:00] VITALS: BP 145/59
--- NOTE | 2017-07-01 11:10 | NUR ---
MS RN DISCHARGED PATIENT HAS BEEN CLEARED FOR DISCHARGE TO PSYCH UNIT BY MD. PATIENT IS AWAKE, APPEARS ANXIOUS AND FORGETFUL, FREQUENT RE ORIENTATION PROVIDED. SKIN CARE PROVIDED, GUNNER MIDLINE AND IV IN RFA REMOVED, GAUZE APPLIED, NO BLEEDING NOTED. PATIENT IS SEEN BY DR. BLOCK/PSYCH PROR MYRA. CALLED [facility] SPOKE TO AMISHA/ALEXANDRU FOR REPORT. PATIENT HAS NO BELONGINGS. PATIENT WAS MEDICALLY DISCHARGED TO [facility], TRANSPORTED VIA WHEELCHAIR, ACCOMPANIED BY ANOTHER RN.
[2017-07-01] MEDS ORDERED: CLOT15CR4 TP (12:08)
[2017-07-01] MEDS ORDERED: ALLA266C2 TP (12:08)
[2017-07-01] MEDS ORDERED: BLOO-668 IN (12:08)
== END 2017-07-01 11:10 | DRG 100 ==
LOC: EDSEX → ICUOV 10:41 → MEDSG1 06-30 12:22
PROVIDERS: ADMIT Internal Medicine; ATTEND Internal Medicine
PROC: 05H533Z Insertion of Infusion Device into Right Subclavian Vein, Percutaneous Approach (ICD-10-PCS; principal; 2017-07-01)
PROC: B546ZZA Ultrasonography of Right Subclavian Vein, Guidance (ICD-10-PCS; 2017-07-01)
DX: G40.909 Epilepsy, unspecified, not intractable, without status epilepticus (principal); G93.40 Encephalopathy, unspecified; F33.2 Major depressive disorder, recurrent severe without psychotic features; I10 Essential (primary) hypertension; R29.810 Facial weakness; F10.10 Alcohol abuse, uncomplicated; E87.6 Hypokalemia; F43.10 Post-traumatic stress disorder, unspecified; F03.90 Unspecified dementia, unspecified severity, without behavioral disturbance, psychotic disturbance, mood disturbance, and anxiety
CPT/HCPCS: 36415; 36569; 36600; 71010-TC; 80048-TC; 80061-TC; 80305; 81000-TC; 82803-TC; 82962-TC; 83735-TC; 84484-TC; 85025-TC; 85730-TC; 87081-TC; 87086-TC; 92611-TC; 95819-TC; 97112-TC; 97116-TC; 97530-TC; A4606; C9113; J3475; J3480; J3490; Z7610

== ENCOUNTER 2017-07-01 11:40 | Inpatient (IN) | payer MEDICARE ==
[~2017-07-01] VITALS: Ht 180.3 cm; Wt 64.4 kg
[2017-07-01 11:30] VITALS: BP 129/66
[2017-07-01 12:00] VITALS: BP 129/66
[2017-07-01] MEDS ORDERED: LORAZEPAM 0.5 MG TABLET PO PRN (12:00)
[2017-07-01] MEDS ORDERED: MAGNESIUM HYDROXIDE 30 ML UDC PO PRN (12:00)
[2017-07-01] MEDS ORDERED: MAG HYDROX/AL HYDROX/SIMETH 30 ML UDC PO PRN (12:00)
[2017-07-01] MEDS ORDERED: ACETAMINOPHEN 325 MG TABLET PO PRN (12:00)
--- NOTE | 2017-07-01 12:00 | NUR ---
GPS/RN RECEIVED PT FROM [facility] ON 525 HOLD A/O X1 POOR HISTORIAN CONFUSED REFUSED TO SIGN ADMITTING PAPERWORK/CONSENTS, REFUSED FULL BODY ASSESSMENT AND PICTURES TAKEN. RESISTIVE TO CARE. ADMITTING ORDERS FROM DR JORDAN AND RANDY RECEIVED AND CARRIED OUT.NO RELATIVES TO NOTIFY OF ADMISSION. NO CONTRABAND NOTED.
[2017-07-01] MEDS ORDERED: BLOO-668 IN (12:08)
[2017-07-01] MEDS ORDERED: CLOT15CR4 TP (12:08)
[2017-07-01] MEDS ORDERED: ALLA266C2 TP (12:08)
[2017-07-01 16:10] VITALS: BP 118/83
[2017-07-01] MEDS ORDERED: DEXTROSE 50%-WATER 50 ML DISP.SYRIN IV PRN (16:30)
[2017-07-01] MEDS ORDERED: INSULIN REGULAR, HUMAN 100 UNIT/ML 3 ML VIAL SQ PRN (16:30)
[2017-07-01] MEDS ORDERED: BLOOD SUGAR DIAGNOSTIC 1 EACH STRIP IN SCH (17:30)
[2017-07-01] MEDS: CLOTRIMAZOLE/BETAMETASONE DIPROPIONATE 15 GM TUBE TP SCH (18:11)
[2017-07-01 20:00] VITALS: BP 125/49
--- NOTE | 2017-07-02 00:31 | NUR ---
Pt has been quite fragmented, confused, & refusing skin assessment.
[2017-07-02 06:57] LABS: BASOPHILS % (AUTO) 0.3 % (0.0-2.0); EOSINOPHILS # (AUTO) 0.2 /CMM (0.0-0.7); EOSINOPHILS % (AUTO) 2.9 % (0.0-6.0); HEMATOCRIT 40 % (39-51); HEMOGLOBIN 13.4 g/dL (13.5-17.5); LYMPHOCYTES # (AUTO) 2.4 /CMM (0.8-4.8); LYMPHOCYTES % (AUTO) 39.9 % (20.0-44.0); MEAN CORPUSCULAR HEMOGLOBIN 36 PG (26.0-33.0); MEAN CORPUSCULAR HGB CONC 34 g/dl (31.0-36.0); MEAN CORPUSCULAR VOLUME 106 fL (80-96); MONOCYTES # (AUTO) 0.5 /CMM (0.1-1.30); MONOCYTES % (AUTO) 8.8 % (2.0-12.0); NEUTROPHILS # (AUTO) 2.9 /CMM (1.8-8.9); NEUTROPHILS % (AUTO) 48.1 % (43.0-81.0); PLATELET COUNT (AUTO) 111 /CMM (150-450); RDW COEFFICIENT OF VARIATION 13.9 (11.5-15.0); RED BLOOD CELL COUNT(AUTO) 3.79 MIL/uL (4.5-6.0); WHITE BLOOD COUNT (AUTO) 6.1 K/uL (4.3-11.0)
[2017-07-02 07:14] LABS: ALBUMIN 2.5 g/dL (3.4-5.0); BILIRUBIN,TOTAL 1.2 mg/dL (0.2-1.0); CALCIUM, SERUM 8.8 mg/dL (8.5-10.1); CREATININE 0.6 mg/dL (0.6-1.3); MAGNESIUM 1.4 mg/dL (1.8-2.4); PHOSPHORUS 3.8 mg/dL (2.5-4.9); POTASSIUM 3.4 mmol/L (3.5-5.1); TOTAL PROTEIN, SERUM 6.9 g/dL (6.4-8.2)
[2017-07-02 08:08] VITALS: BP 106/75
[2017-07-02] MEDS: THIAMINE HCL 100 MG TABLET PO SCH (08:18)
[2017-07-02] MEDS: FOLIC ACID 1 MG TABLET PO SCH (08:18)
[2017-07-02] MEDS: CLOTRIMAZOLE/BETAMETASONE DIPROPIONATE 15 GM TUBE TP SCH ×2 (08:18→17:18)
[2017-07-02] MEDS: Z GUARD REMEDY 2 OZ OINT TP SCH (08:19)
[2017-07-02] MEDS ORDERED: MAGNESIUM OXIDE 400 MG TABLET PO ONE (10:00)
[2017-07-02] MEDS: SERTRALINE HCL 25 MG TABLET PO SCH (11:10)
[2017-07-02] MEDS ORDERED: POTASSIUM CHLORIDE 20 MEQ TAB.PRT.SR PO ONE (12:30)
[2017-07-02] MEDS ORDERED: QUETIAPINE FUMARATE 25 MG TABLET PO PRN (15:00)
[2017-07-02 16:00] VITALS: BP 130/55
[2017-07-02 19:57] VITALS: BP 129/53
[2017-07-02] MEDS ORDERED: MAGNESIUM OXIDE 400 MG TABLET ONE (22:08)
[2017-07-02] MEDS: MAGNESIUM OXIDE 400 MG TABLET PO SCH (22:10)
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
[2017-07-03 08:00] VITALS: BP 118/59
[2017-07-03] MEDS: THIAMINE HCL 100 MG TABLET PO SCH (09:16)
[2017-07-03] MEDS: FOLIC ACID 1 MG TABLET PO SCH (09:16)
[2017-07-03] MEDS: SERTRALINE HCL 25 MG TABLET PO SCH (09:16)
[2017-07-03] MEDS: Z GUARD REMEDY 2 OZ OINT TP SCH (09:17)
[2017-07-03] MEDS: MAGNESIUM OXIDE 400 MG TABLET PO SCH ×2 (09:23→17:18)
[2017-07-03] MEDS: CLOTRIMAZOLE/BETAMETASONE DIPROPIONATE 15 GM TUBE TP SCH ×2 (09:24→17:18)
[2017-07-03 16:00] VITALS: BP 117/60
[2017-07-03 20:20] VITALS: BP 126/58
[2017-07-04 07:19] LABS: CALCIUM, SERUM 9.1 mg/dL (8.5-10.1); CREATININE 0.5 mg/dL (0.6-1.3); MAGNESIUM 1.9 mg/dL (1.8-2.4); POTASSIUM 4.7 mmol/L (3.5-5.1)
[2017-07-04 08:00] VITALS: BP 140/69
[2017-07-04] MEDS: SERTRALINE HCL 25 MG TABLET PO SCH (08:20)
[2017-07-04] MEDS: MAGNESIUM OXIDE 400 MG TABLET PO SCH ×2 (08:20→17:00)
[2017-07-04] MEDS: FOLIC ACID 1 MG TABLET PO SCH (08:21)
[2017-07-04] MEDS: THIAMINE HCL 100 MG TABLET PO SCH (08:21)
[2017-07-04] MEDS: CLOTRIMAZOLE/BETAMETASONE DIPROPIONATE 15 GM TUBE TP SCH ×2 (08:22→17:54)
--- NOTE | 2017-07-04 09:18 | NUR ---
I have reviewed this patients psychosocial dated 06/26/2017 and I can attest to the accuracy of the information therein. There have been no changes since her last assessment. Patient is alert and oriented to time and self. Patients mood is both anxious and depressed and affect is somewhat guarded. Patient is currently denying suicidal/homicidal ideations. Thought process remains poor as well as poor insight and judgement. Patient resides in an apartment located at [address] [place] [address] but is unsure if she wants to return there. ARLTEH to follow up. SW will help form a safe and proper discharge.
[2017-07-04] MEDS: Z GUARD REMEDY 2 OZ OINT TP SCH (09:42)
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
[2017-07-04 15:55] VITALS: BP 143/55
[2017-07-04] MEDS: CLOTRIMAZOLE 1% 15 GM TUBE TP SCH (17:54)
[2017-07-04 20:19] VITALS: BP 138/56
[2017-07-05 08:44] VITALS: BP 109/74
[2017-07-05] MEDS: CLOTRIMAZOLE/BETAMETASONE DIPROPIONATE 15 GM TUBE TP SCH ×2 (09:00→17:00)
[2017-07-05] MEDS: CLOTRIMAZOLE 1% 15 GM TUBE TP SCH ×2 (09:00→17:00)
[2017-07-05] MEDS: Z GUARD REMEDY 2 OZ OINT TP SCH (09:00)
[2017-07-05] MEDS: THIAMINE HCL 100 MG TABLET PO SCH (09:29)
[2017-07-05] MEDS: MAGNESIUM OXIDE 400 MG TABLET PO SCH ×2 (09:29→17:00)
[2017-07-05] MEDS: FOLIC ACID 1 MG TABLET PO SCH (09:29)
[2017-07-05] MEDS: SERTRALINE HCL 25 MG TABLET PO SCH (09:29)
--- NOTE | 2017-07-05 11:37 | NUR ---
plastics factory worker faxed initial review packet to [facility] [id number] [place] [address] (phone: [phone]/ ). plastics factory worker will follow-up.
--- NOTE | 2017-07-05 13:47 | NUR ---
relay worker spoke to December from [address] [place] [address] (phone: [phone]/ ). Per December, they cannot accept the patient due to her alcohol use disorder.
--- NOTE | 2017-07-05 13:50 | NUR ---
maintenance worker swimming pool faxed initial review packet to [facility] (phone: [phone]/ ) [address] [place] [phone]. maintenance worker swimming pool will follow-up.
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
--- NOTE | 2017-07-05 14:34 | NUR ---
pan tank worker attempted to contact patient's friend Liz Gauthiervalerie ([place]) ([phone]). However, she was unavailable, manager social work left her her a voicemail with her contact information. pan tank worker will follow-up.
--- NOTE | 2017-07-05 14:36 | NUR ---
cafeteria worker attempted to contact [facility] clinical social work therapist Juanita ([phone]) however, she was unavailable. cafeteria worker left her a voicemail with her contact information. cafeteria worker will follow-up.
--- NOTE | 2017-07-05 15:30 | NUR ---
social service worker faxed initial review packet to [facility] ( / ) [address] [place] [phone]. social service worker will follow-up.
[2017-07-05 16:41] VITALS: BP 100/69
[2017-07-05 19:57] VITALS: BP 124/48
[2017-07-05 23:00] VITALS: BP 125/63
[2017-07-06 07:03] VITALS: BP 126/70
[2017-07-06 08:16] VITALS: BP 110/65
[2017-07-06] MEDS: MAGNESIUM OXIDE 400 MG TABLET PO SCH ×2 (08:32→16:08)
[2017-07-06] MEDS: THIAMINE HCL 100 MG TABLET PO SCH (08:32)
[2017-07-06] MEDS: SERTRALINE HCL 25 MG TABLET PO SCH (08:32)
[2017-07-06] MEDS: FOLIC ACID 1 MG TABLET PO SCH (08:32)
[2017-07-06] MEDS: Z GUARD REMEDY 2 OZ OINT TP SCH (08:33)
[2017-07-06] MEDS: CLOTRIMAZOLE 1% 15 GM TUBE TP SCH ×2 (10:08→16:23)
[2017-07-06] MEDS: CLOTRIMAZOLE/BETAMETASONE DIPROPIONATE 15 GM TUBE TP SCH ×2 (10:08→16:23)
--- NOTE | 2017-07-06 11:48 | NUR ---
clerical office worker received a voicemail from Sudha from [facility] (phone: [phone]/ ) [address] [place] [address], who stated that they cannot accept the patient as they feel that she is not suitable for their facility.
--- NOTE | 2017-07-06 11:52 | NUR ---
farmworker cranberry faxed [facility] [address] [facility] [address]. (phone: [phone]/ ). farmworker cranberry will follow-up.
--- NOTE | 2017-07-06 12:03 | NUR ---
shed workers supervisor spoke to [facility] social media senior associate Kenzie (Desk: [phone]/ cell: [phone]). shed workers supervisor informed Kenzie that she was looking for placement. [facility] social media senior associate Kenzie requested to be informed when patient is discharged. shed workers supervisor will follow-up.
--- NOTE | 2017-07-06 12:21 | NUR ---
skid road worker faxed initial review packet to [address] [place] [address] (phone: [phone]/ ). skid road worker will follow-up.
[2017-07-06 16:51] VITALS: BP 130/56
[2017-07-06 20:00] VITALS: BP 122/63
[2017-07-06] MEDS: TEMAZEPAM 7.5 MG CAPSULE PO PRN (21:37)
[2017-07-07 08:00] VITALS: BP 152/72
[2017-07-07] MEDS: CLOTRIMAZOLE 1% 15 GM TUBE TP SCH ×2 (08:47→17:16)
[2017-07-07] MEDS: SERTRALINE HCL 25 MG TABLET PO SCH (08:49)
[2017-07-07] MEDS: MAGNESIUM OXIDE 400 MG TABLET PO SCH ×2 (08:49→17:16)
[2017-07-07] MEDS: CLOTRIMAZOLE/BETAMETASONE DIPROPIONATE 15 GM TUBE TP SCH ×2 (08:49→17:16)
[2017-07-07] MEDS: FOLIC ACID 1 MG TABLET PO SCH (08:49)
[2017-07-07] MEDS: THIAMINE HCL 100 MG TABLET PO SCH (08:49)
[2017-07-07] MEDS: Z GUARD REMEDY 2 OZ OINT TP SCH (08:50)
--- NOTE | 2017-07-07 10:10 | NUR ---
WOUND CARE CONSULT: PT SLEEPING SOUNDLY AT THIS TIME. PT HAS PHOTO DOCUMENTATION OF SKIN TEAR TO LEFT ARM. RECOMMENDATIONS MADE BASED ON PHOTO. DISCUSSED WITH NURSING STAFF. PT HAS BEEN SEEN BY WOUND CARE TEAM SEVERAL TIMES. WILL SEE PRN. M D IN AGREEMENT WITH PLAN OF CARE.
--- NOTE | 2017-07-07 12:13 | NUR ---
Per Sis, from [facility] [address] [place] [address]. (phone: [phone]/ ). Patient has been accepted to their facility. pit crew support worker will follow-up.
[2017-07-07 16:00] VITALS: BP 139/63
[2017-07-07 20:00] VITALS: BP 108/55
[2017-07-07] MEDS: TEMAZEPAM 7.5 MG CAPSULE PO PRN (21:32)
[2017-07-08 08:00] VITALS: BP 122/68
[2017-07-08] MEDS: THIAMINE HCL 100 MG TABLET PO SCH (08:08)
[2017-07-08] MEDS: FOLIC ACID 1 MG TABLET PO SCH (08:08)
[2017-07-08] MEDS: SERTRALINE HCL 25 MG TABLET PO SCH (08:08)
[2017-07-08] MEDS: CLOTRIMAZOLE/BETAMETASONE DIPROPIONATE 15 GM TUBE TP SCH ×2 (08:08→17:03)
[2017-07-08] MEDS: MAGNESIUM OXIDE 400 MG TABLET PO SCH ×2 (08:08→17:03)
[2017-07-08] MEDS: Z GUARD REMEDY 2 OZ OINT TP SCH (08:09)
[2017-07-08] MEDS: CLOTRIMAZOLE 1% 15 GM TUBE TP SCH ×2 (08:09→17:03)
[2017-07-08 16:00] VITALS: BP 117/72
[2017-07-08 20:00] VITALS: BP 119/72
[2017-07-08] MEDS: TEMAZEPAM 7.5 MG CAPSULE PO PRN (22:18)
[2017-07-09 07:50] VITALS: BP 132/56
[2017-07-09] MEDS: FOLIC ACID 1 MG TABLET PO SCH (09:31)
[2017-07-09] MEDS: MAGNESIUM OXIDE 400 MG TABLET PO SCH ×2 (09:31→16:20)
[2017-07-09] MEDS: THIAMINE HCL 100 MG TABLET PO SCH (09:31)
[2017-07-09] MEDS: SERTRALINE HCL 25 MG TABLET PO SCH (09:31)
[2017-07-09] MEDS: Z GUARD REMEDY 2 OZ OINT TP SCH (09:32)
[2017-07-09] MEDS: CLOTRIMAZOLE 1% 15 GM TUBE TP SCH (09:32)
[2017-07-09] MEDS: CLOTRIMAZOLE/BETAMETASONE DIPROPIONATE 15 GM TUBE TP SCH ×2 (12:38→16:20)
[2017-07-09 16:00] VITALS: BP 123/50
[2017-07-09 20:02] VITALS: BP 106/72
[2017-07-10 07:43] LABS: CALCIUM, SERUM 9.3 mg/dL (8.5-10.1); CREATININE 0.7 mg/dL (0.6-1.3); MAGNESIUM 1.8 mg/dL (1.8-2.4); PHOSPHORUS 4.4 mg/dL (2.5-4.9); POTASSIUM 3.7 mmol/L (3.5-5.1)
[2017-07-10 08:00] VITALS: BP 134/65
[2017-07-10 08:07] LABS: BASOPHILS % (AUTO) 0.3 % (0.0-2.0); EOSINOPHILS # (AUTO) 0.4 /CMM (0.0-0.7); EOSINOPHILS % (AUTO) 4.9 % (0.0-6.0); HEMATOCRIT 45 % (33-45); HEMOGLOBIN 15.5 g/dL (11.5-14.8); LYMPHOCYTES # (AUTO) 2.3 /CMM (0.8-4.8); LYMPHOCYTES % (AUTO) 28.5 % (20.0-44.0); MEAN CORPUSCULAR HEMOGLOBIN 36 PG (26.0-33.0); MEAN CORPUSCULAR HGB CONC 35 g/dl (31.0-36.0); MEAN CORPUSCULAR VOLUME 104 fL (82-100); MONOCYTES # (AUTO) 0.5 /CMM (0.1-1.30); MONOCYTES % (AUTO) 5.6 % (2.0-12.0); NEUTROPHILS # (AUTO) 4.9 /CMM (1.8-8.9); NEUTROPHILS % (AUTO) 60.7 % (43.0-81.0); PLATELET COUNT (AUTO) 140 /CMM (150-450); RDW COEFFICIENT OF VARIATION 14.3 (11.5-15.0); RED BLOOD CELL COUNT(AUTO) 4.29 MIL/uL (4.0-5.2); WHITE BLOOD COUNT (AUTO) 8.1 K/uL (4.3-11.0)
[2017-07-10] MEDS: SERTRALINE HCL 25 MG TABLET PO SCH (08:24)
[2017-07-10] MEDS: FOLIC ACID 1 MG TABLET PO SCH (08:24)
[2017-07-10] MEDS: MAGNESIUM OXIDE 400 MG TABLET PO SCH (08:24)
[2017-07-10] MEDS: THIAMINE HCL 100 MG TABLET PO SCH (08:24)
[2017-07-10] MEDS: CLOTRIMAZOLE/BETAMETASONE DIPROPIONATE 15 GM TUBE TP SCH (08:25)
[2017-07-10] MEDS: Z GUARD REMEDY 2 OZ OINT TP SCH (08:25)
--- NOTE | 2017-07-10 14:20 | NUR ---
GPS/RN PATIENT CLEARED FOR DISCHARGE BY DR JORDAN AND DR IBRAHIM TO [facility]. MEDICATIONS RECONCILED BY BOTH DR'S,AFTERCARE AND PACKET EXPLAINED TO PATIENT. BELONGINGS RETURNED, PATIENT DENIES SI/HI/AH AT TIME OF DISCHARGE, PSYCHIATRIC TREATMENT PLANS MET. PATIENT IS COOPERATIVE, COMPLIANT WITH MEDICATIONS AND CARE, REPORT CALLED TO YAMINI AT FACILITY, LEFT UNIT CALM, NO DISTRESS WITH TRANSPORT AT SIDE.
--- NOTE | 2017-07-10 14:57 | NUR ---
Discharge Note: Patient was discharged to [facility] [address] [facility] [place] [address] . Via med response. Patient's brother Henrry [phone] was notified and agreeable with the discharge plan. Patient's mood and affect were calm and appropriate upon discharge. Patient denied suicidal and homicidal ideations. Patient will follow-up with Dr. Finn at the facility on 07/12/17 at 1:00PM in which she will discuss her alcohol use disorder. Facilitated info to IDT team who are in agreement with discharge arrangement. The multidisciplinary exitcare form was done, printed, signed, and given to the patient.
--- NOTE | 2017-07-10 15:38 | NUR ---
fibreglass lay up worker informed [facility] delinquency prevention social worker Kenzie (Desk: [phone]/ cell: [phone]) of patient's discharge to [facility] [address] [place] [address] .
== END 2017-07-10 20:34 | DRG 885 ==
LOC: GPS 11:40 → EDSEX 11:40 → GPS 07-03 15:56
PROVIDERS: ADMIT Psychiatry & Neurology Psychiatry; ATTEND Internal Medicine
DX: F33.2 Major depressive disorder, recurrent severe without psychotic features (principal); E44.0 Moderate protein-calorie malnutrition; F03.90 Unspecified dementia, unspecified severity, without behavioral disturbance, psychotic disturbance, mood disturbance, and anxiety; E83.42 Hypomagnesemia; E88.09 Other disorders of plasma-protein metabolism, not elsewhere classified; Z68.1 Body mass index [BMI] 19.9 or less, adult; E78.5 Hyperlipidemia, unspecified; F10.10 Alcohol abuse, uncomplicated; F43.10 Post-traumatic stress disorder, unspecified; E87.6 Hypokalemia; I10 Essential (primary) hypertension
CPT/HCPCS: 36415; 80048-TC; 80053-TC; 83735-TC; 84100-TC; 85025-TC; 87081-TC; 97110-TC; 97116-TC; 97530-TC; A6403; J1815; Z7610